=== PATIENT | male | born 1995 | race Caucasian/White ===

== ENCOUNTER 2019-09-06 06:02 | Day surgery (SDC) | payer OTHER ==
[2019-09-06] MEDS ORDERED: MIDAZOLAM HCL 2 MG/2 ML VIAL ONE (08:48)
[2019-09-06] MEDS ORDERED: HYDROmorphone HCL/PF 2 MG/ML VIAL ONE (08:48)
[2019-09-06] MEDS ORDERED: PROPOFOL 200 MG/20 ML VIAL IV ONE (08:48)
[2019-09-06] MEDS ORDERED: LIDOCAINE HCL 2% PF 100MG/5ML VIAL IJ ONE (08:48)
[2019-09-06] MEDS ORDERED: SODIUM CHLORIDE IRRIG SOLUTION 3,000 ML IRRIG.SOLN IR ONE (08:48)
[2019-09-06] MEDS ORDERED: LABETALOL HCL 20 MG/4 ML SYRINGE IV ONE (08:48)
[2019-09-06] MEDS ORDERED: BUPIV. HCL 0.25% (2.5MG/ML)/EPI. (1:200,000) PF 10 ML VIAL IM ONE (08:48)
[2019-09-06] MEDS ORDERED: ROCURONIUM BROMIDE 10 MG/ML 5ML VIAL ONE (08:48)
[2019-09-06] MEDS ORDERED: ONDANSETRON HCL/PF 4 MG/ 2ML VIAL ONE (08:48)
[2019-09-06] MEDS ORDERED: LACTATED RINGERS 1,000 ML IV.SOLN IV ONE ×2 (08:48)
[2019-09-06] MEDS ORDERED: DEXAMETHASONE SODIUM PHOSPHATE 10 MG/ML VIAL ONE (08:48)
[2019-09-06] MEDS ORDERED: LIDOCAINE HCL 1% PF 300MG/30ML VIAL ONE (08:48)
[2019-09-06] MEDS ORDERED: ceFAZolin SODIUM 1 GM VIAL ONE (08:48)
[2019-09-06] MEDS ORDERED: SUGAMMADEX SODIUM 200 MG/2 ML VIAL IV ONE (08:48)
[2019-09-06] MEDS ORDERED: SEVOFLURANE 250 ML LIQUID IH ONE (08:48)
[2019-09-06] MEDS ORDERED: hydrALAZINE HCL 20 MG/1 ML ONE (09:33)
[2019-09-06] MEDS ORDERED: fentaNYL CITRATE/PF 100 MCG/2 ML INJ. ONE ×3 (10:00→10:28)
[2019-09-06] MEDS ORDERED: 0.9 % SODIUM CHLORIDE 1,000 ML IV ONE (10:55)
--- NOTE | 2019-09-10 17:34 | Operative Note ---
PROCEDURE DATE: 09/06/2019 PREOPERATIVE DIAGNOSIS: 1. Morbid obesity. 2. Hypertension. 3. Sleep apnea. POSTOPERATIVE DIAGNOSIS: 1. Morbid obesity. 2. Hypertension. 3. Sleep apnea. PROCEDURES PERFORMED: 1. Laparoscopic vertical sleeve gastrectomy. 2. Upper gastrointestinal endoscopy. SURGEON: Chris Arora M.D. INDICATIONS FOR PROCEDURE: Mr. Shannon is a 23-year-old male who presented with features of morbid obesity. He was noted to have a weight of 490 pounds with a BMI of 59.2 with the above-listed comorbidities. The patient was advised laparoscopic vertical sleeve gastrectomy and possible hiatal hernia repair. The patient showed understanding and agreed to proceed. DESCRIPTION OF PROCEDURE: After explaining to the patient in detail and informed consent was obtained, the patient was identified in the preoperative holding area. The patient was transferred to the operating room and was placed in supine position. Sequential compressive devices were placed for DVT prophylaxis. Preoperative antibiotics were given. After induction of anesthesia, the abdomen was prepped and draped in a sterile fashion. Through a left upper quadrant 1-cm incision, and using Optiview technique, the peritoneal cavity was entered and pneumoperitoneum was created. Thereafter, under direct vision, another 5-mm trocar was placed in the left midabdomen and another 15-mm trocar was placed in the right midabdomen. Through a 1-cm incision in the right subcostal region, another 5-mm trocar was placed. Through a 1-cm incision in the epigastrium, a Harini retractor was introduced and the left lobe of the liver was retracted. On initial inspection, the patient was noted to have no evidence of hiatal hernia. I took down the gastroepiploic vessels using a LigaSure. This was continued superiorly. The short gastric vessels were taken down. The gastrophrenic ligament was divided and the Angle of His was mobilized. The posterior attachments of the stomach on the pancreas were released. Distally, the gastroepiploic vessels were taken down up to about 4 cm proximal to the pylorus. At this point, a #38 [place] Hurst Bougie was introduced into the stomach and was placed along the lesser curve. The stomach was then divided in a vertical fashion with multiple Endo CHANDRIKA Covidien Black Load Staplers. The first firing was directed outwards towards the greater curvature. Subsequent firings were directed towards the Angle of His to create a loose sleeve around the #38 [place] bougie. The bougie was then removed and an upper GI endoscopy was performed at this point. The scope was introduced into the esophagus and was gradually advanced into the stomach. The GE junction appeared normal. The sleeve size appeared normal. No evidence of any active bleeding was noted. The stomach was insufflated with air and irrigation of fluid along the staple line revealed no evidence of air leak. The stomach was then suctioned out and the scope was removed. Absolute hemostasis was ensured. Thorough saline irrigation was given. The Harini retractor was removed. Approximately 10 mL of a lidocaine- Marcaine mix was instilled under the left hemidiaphragm. The sleeve gastrectomy specimen was removed. The abdomen was then deflated. The incisions were closed with 4-0 Monocryl. Dermabond was applied. Approximately 10 mL of a lidocaine- Marcaine mix was injected into all the incisions. The patient was awakened from anesthesia and was transferred to the recovery room in stable condition. The patient had some bleeding that was noted from the short gastric vessels near the Angle of His, but the stomach was found to be firmly adherent onto the spleen. The patient had approximately 250 mL of blood loss while trying to take control of this. It was controlled with pressure, subsequently with Surgicel and cauterization, and Surgiflo was placed at the end of the procedure. ESTIMATED BLOOD LOSS: Approximately 250 mL. CONDITION OF THE PATIENT: Stable. FLUIDS GIVEN: Per Anesthesia note. SPECIMEN(S) SENT: Sleeve gastrectomy specimen. COMPLICATIONS: None. ANESTHESIA: General. Chris Arora M.D. WILL/tete (Please copy [facility] provider when applicable) Job #[id number] EVY
== END 2019-09-06 10:44 | disposition other institution (70) ==
LOC: OPSURG 06:02
PROVIDERS: ATTEND Surgery
DX: E66.01 Morbid (severe) obesity due to excess calories (principal); Z68.43 Body mass index [BMI] 50.0-59.9, adult; G47.30 Sleep apnea, unspecified; I10 Essential (primary) hypertension; K66.0 Peritoneal adhesions (postprocedural) (postinfection)
CPT/HCPCS: 43235; 43775; 88305; J0360; J0690; J1170; J2001; J2250; J2405; J2704; J3010; J7030; J7120

== ENCOUNTER 2019-09-06 10:45 | Inpatient (IN) | payer OTHER ==
[2019-09-06] MEDS ORDERED: PROMETHAZINE HCL 25 MG in 0.9 % SODIUM CHLORIDE 50 ML IV PRN (11:08)
[2019-09-06] MEDS ORDERED: ONDANSETRON HCL/PF 4 MG/ 2ML VIAL IVP PRN (11:08)
[2019-09-06] MEDS ORDERED: IPRATROPIUM/ALBUTEROL SULFATE 3 ML AMPUL.NEB NEB PRN (11:08)
--- NOTE | 2019-09-06 11:17 | History and Physical Report ---
History of Present Illnes - History of Present Illness Reason for Visit: S/P LSG History of Present Illness: Patient is a 23-year-old male who has tried multiple diets and exercise programs with no success. He has always struggled with his weight since he was a child. Patient and surgeon decided to proceed with gastric sleeve procedure. Procedure went well- he had a very large stomach and has 250ml of blood loss. He was treated for hypertension in PACU with doses of Labetolol and Hydralazine; we will monitor blood pressures closely- he is elevated upon arrival to unit; will treat pain and see if this works. He will be admitted and monitored s/p surgical intervention. Patient has been on a liquid diet prior to surgery so he is a risk of dehydration s/p surgery. He will be admitted for IV hydration to help hydrate patient until he is able to tolerate a sufficient oral intake, will treat pain with IV medication until patient is able to tolerate oral meds, IV antiemetics to help reduce episodes of nausea and/or vomiting. Patient will be monitored closely using telemetry s/p surgery d/t HTN. Will encourage incentive spirometer for morbid obesity and WES. Will monitor respiratory status due to WES. Patient appears very uncomfortable s/p surgery. - Past Medical History Cardiac: HTN Pulmonary: Sleep Apnea Gastrointestinal: GERD Psych: Anxiety, Depression, Other (SI in 2017) Musculoskeletal: Chronic low back pain, Osteoarthritis Endocrine: obesity (Morbid) - Past Surgical History Past Surgical History: None, Other (Had a colonoscopy) - Past Family History Mother Family History: None, Other (Tobacco use) Father Family History: Hypertension - Past Social History Smoke: Quit (2018) Occupation: Disabled Alcohol: None Drugs: None Lives: With Family Domestic Violence: Negative - Health Maintenance Health Maintenance: Cholesterol, Colonoscopy Influenza Vaccine: No Pneumonia Vaccine: No Resuscitation Status: Resusciation Status Resuscitation Status Full Code - Unable to Obtain History Unable to Obtain: No Review of Systems - Review of Systems Constitutional: Weakness Eyes: negative: pain, conjunctivae inflammation ENT: negative: Nose Discharge, Nose Congestion, Throat Pain Respiratory: SOB with Excertion. negative: Cough, Dry Cardiovascular: negative: Chest Pain, Light Headedness Gastrointestinal: Nausea, Abdominal Pain (s/p LSG). negative: Vomiting Genitourinary: negative: Dysuria Musculoskeletal: Back Pain (chronic) Skin: Other (Incision sites x 5) Neurological: Weakness - Medications/Allergies Allergies/Adverse Reactions: Allergies Allergy/AdvReac Type Severity Reaction Status Date / Time hydrocodone AdvReac Nausea/Vomi Verified 09/06/19 11:06 ting Current Inpatient Medications: Current Inpatient Medications Acetaminophen (Ofirmev) 1,000 mg IV Q6H PRN PRN Reason: For Mild Breakthrough Pain Stop: 09/10/19 11:07 Albuterol/Ipratropium (Duoneb) 3 ml NEB Q4 PRN PRN Reason: Wheezing Stop: 10/06/19 11:07 Enoxaparin Sodium (Lovenox) 40 mg SQ DAILY [facility] Stop: 09/21/19 11:09 Famotidine (Pepcid) 20 mg IVP BID [facility] Stop: 09/10/19 20:59 Promethazine HCl 25 mg/ Sodium (Chloride) 51 mls @ 200 mls/hr IV Q6 PRN PRN Reason: Nausea / Vomiting Stop: 09/10/19 11:07 Sodium Chloride (Normal Saline) 1,000 mls @ 150 mls/hr IV Q8H [facility] Stop: 10/06/19 11:14 Cefazolin Sodium 1 gm/ Sodium (Chloride) 50 mls @ 100 mls/hr IV Q8H [facility] Stop: 09/07/19 00:29 Morphine Sulfate () 2 mg IV Q2H PRN PRN Reason: PAIN 8-10 Stop: 09/10/19 11:07 Ondansetron HCl (Zofran) 4 mg IVP Q6H PRN PRN Reason: Nausea / Vomiting Stop: 09/10/19 11:07 Exam - Exam General: Alert, Oriented to Person, Oriented to Place, Moderate distress, Other (Still waking up from anesthesia), Morbidly Obese HEENT: PERRLA, Mouth Mucous membr. moist/[place], Nose Mucous membr. moist/[place] Neck: Normal Range of Motion Carotids: No bruit Lungs: Clear to auscultation, Normal air movement Cardiovascular: Regular rate, Normal S1, Normal S2 Peripheral Edema: None Peripheral Pulses: 2+ Abdomen: Soft, Decreased Bowel Sounds Integumentary: Warm, Dry, Pale, Other (incisions x 5 without redness/erythema/drainage- Skin adhesive intact) Extremities: No edema, Normal pulses, No tenderness/swelling Neurological: Generalized Weakness Psych/Mental Status: Other (flat affect; very uncomfortable) Assessment/Plan - Assessment/Plan (1) S/P laparoscopic sleeve gastrectomy Status: Acute Current Visit: Yes Plan: Plan to admit for IV hydration, IV pain meds, and IV antiemetics. Lovenox and SCDs to help prevent DVTs, IS and frequent ambulation will be implemented. Start ice chips and advance diet as tolerated. IV pepcid BID (2) Morbid obesity due to excess calories Status: Acute Current Visit: Yes Plan: Patient is s/p gastric sleeve. We will assist patient with implementing gastric sleeve diet protocol starting with ice chips and clear liquids and advancing as tolerated (3) Obstructive sleep apnea Status: Acute Current Visit: Yes Plan: Patient has mild sleep apnea; no device; will monitor pulse ox and resp. status closely until fully withdrawn from anesthesia (4) Hypertension Status: Acute Current Visit: Yes Qualifiers: Hypertension type: essential hypertension Qualified Code(s): I10 - [place] l (primary) hypertension Plan: Patient is not normally on blood pressure medication; we will monitor closely; if diastolic > 90 we will give hydralazine IVP (5) Nausea and vomiting Status: Acute Current Visit: Yes Plan: Pepcid IV BID ordered; IV antiemetics, and IVFs (6) Anxiety and depression Status: Acute Current Visit: Yes Plan: Will hold medications at this time; will monitor closely (7) Chronic back pain Status: Acute Current Visit: Yes Plan: Patient will be receiving pain medications; may use heating pad as needed (8) GERD (gastroesophageal reflux disease) Status: Acute Current Visit: Yes Plan: Hx of GERD, will continue with Pepcid 20 mg BID IV (9) Blood loss Status: Acute Current Visit: Yes Plan: Patient had 250ml blood loss in surgery; we will repeat CBC at 20:00 VTE Assessment - RISK FACTOR SCORE VTE RISK FACTOR SCORES: OBESITY - RISK VTE LOW RISK: SCORE OF 1 OR LESS (RISK PROXIMAL DVT 0.4%) NO PROPHYLAXIS NEEDED (Will continue on Lovenox starting tomorrow due to Morbid Obesity)
[2019-09-06] MEDS: MORPHINE SULFATE 2 MG/ML VIAL IV PRN ×3 (11:34→21:04)
[2019-09-06 11:37] VITALS: BMI 56.7
[2019-09-06] MEDS: 0.9 % SODIUM CHLORIDE 1,000 ML IV SCH ×2 (13:56→20:12)
[2019-09-06] MEDS: ceFAZolin SODIUM 1 GM in 0.9 % SODIUM CHLORIDE 50 ML IV SCH (16:36)
[2019-09-06] MEDS: ACETAMINOPHEN 1,000 MG/100 ML INJ IV PRN (17:30)
[2019-09-06] MEDS: MELATONIN 3 MG TABLET PO SCH (20:13)
[2019-09-06] MEDS: FAMOTIDINE 20 MG/2 ML VIAL IVP SCH (20:16)
[2019-09-07] MEDS: ceFAZolin SODIUM 1 GM in 0.9 % SODIUM CHLORIDE 50 ML IV SCH ×2
[2019-09-07] MEDS: MORPHINE SULFATE 2 MG/ML VIAL IV PRN ×3 (02:00→18:42)
[2019-09-07] MEDS: ACETAMINOPHEN 1,000 MG/100 ML INJ IV PRN ×2 (03:11→08:48)
[2019-09-07] MEDS: 0.9 % SODIUM CHLORIDE 1,000 ML IV SCH ×3 (04:20→17:54)
[2019-09-07 05:54] LABS: BASOPHILS % 0.5 % (0.0-1.5)
[2019-09-07 05:59] LABS: eGFR (Non-African) > 60
--- NOTE | 2019-09-07 06:10 | Inpatient Progress Note ---
Subjective - Required Recertification Statement I anticipate X number of days because-include discharge plan: 1 - Review of Systems Events since last encounter: Patient appears to be sleeping; wakes up easily; states that he is feeling a little better this morning; states he had a lot of nausea and dry heaves after surgery. Patient has been up walking in the hallway this morning; he states he had some nausea and abdominal discomfort; seems to be doing well. VSS. He states that he did not get much sleep. He was having a lot of discomfort last night. He states that pain is improving. He denies any chest pain or shortness of breath. He has been up ambulating in the halls and using incentive spirometer while awake. He is compliant with care. General: Denies: Chills HEENT: Denies: Head Aches Pulmonary: Denies: Dyspnea Cardiovascular: Denies: Chest Pain, Light Headedness Gastrointestinal: Nausea, Vomiting, Abdominal Pain (Incisions x 5 without redness/erythema/drainage; skin adhesive intact) Genitourinary: Denies: Dysuria Musculoskeletal: Back Pain Neurological: Weakness Objective - Exam Vitals and I&O: Vital Signs Temp 97 F L 09/07/19 02:00 Pulse 69 09/07/19 05:20 Resp 20 09/07/19 05:20 BP 162/101 09/07/19 02:00 Pulse Ox 96 09/07/19 05:19 Intake & Output 09/06/19 09/06/19 09/07/19 11:59 23:59 11:59 Intake Total 30 220 960 Output Total 700 700 Balance 30 -480 260 Weight 211.374 kg 210.478 kg Intake: IV 900 Left Hand 900 Oral 30 220 60 Output: Urine 700 700 Other: Voiding Method Urinal Urinal # Bowel Movements 0 General: Alert, Oriented to Person, Oriented to Place, Oriented to Time, Cooperative, Mild distress, Morbidly Obese HEENT: Atraumatic, PERRLA, Mouth Mucous membr. moist/[place], Nose Mucous membr. moist/[place] Neck: Supple, +2 carotid pulse wo bruit Lungs: Clear to auscultation, Normal air movement, Speaks full Sentences Cardiovascular: Regular rate, Normal S1, Normal S2 Abdomen: Soft, Decreased Bowel Sounds Extremities: No edema, Normal pulses, No tenderness/swelling Skin: Normal, [place], Warm, Dry Neurological: Normal gait, Normal speech, Strength Equal Bilat, Generalized Weakness Psych/Mental Status: Mental status NL, Mood NL, Appropriate Affect, Intact Judgment - Results Results: Laboratory Results WBC 13.50 K/ul (4.00-12.00) H 09/07/19 05:15 RBC 5.43 M/ul (3.90-5.20) H 09/07/19 05:15 Hgb 12.9 g/dL (12.0-18.0) 09/07/19 05:15 Hct 38.3 % (37.0-53.0) 09/07/19 05:15 MCV 70.0 fl (80.0-100.0) L 09/07/19 05:15 MCH 23.7 pg (28.0-34.0) L 09/07/19 05:15 MCHC 33.7 g/dL (30.0-36.0) 09/07/19 05:15 RDW 16.9 % (11.3-14.3) H 09/07/19 05:15 Plt Count 311 K/mm3 (130-400) 09/07/19 05:15 Neut % (Auto) 81.1 % (39.0-79.0) H 09/07/19 05:15 Lymph % (Auto) 9.9 % (16.0-50.0) L 09/07/19 05:15 [facility] % (Auto) 7.7 % (0.0-11.0) 09/07/19 05:15 Eos % (Auto) 0.8 % (0.0-6.8) 09/07/19 05:15 Baso % (Auto) 0.5 % (0.0-1.5) 09/07/19 05:15 Neut # (Auto) 11.0 # k/uL (1.4-7.7) H 09/07/19 05:15 Lymph # (Auto) 1.3 # k/uL (0.6-4.0) 09/07/19 05:15 [facility] # (Auto) 1.0 # k/uL (0.0-0.9) H 09/07/19 05:15 Eos # (Auto) 0.1 # k/uL (0.0-0.6) 09/07/19 05:15 Baso # (Auto) 0.1 # k/uL (0.0-0.5) 09/07/19 05:15 Sodium 142 mmol/L (137-145) 09/07/19 05:15 Potassium 3.9 mmol/L (3.5-5.1) 09/07/19 05:15 Chloride 104 mmol/L (98-107) 09/07/19 05:15 Carbon Dioxide 26 mmol/L (22-30) 09/07/19 05:15 Anion Gap 15.9 09/07/19 05:15 BUN 6 mg/dL (9-20) L 09/07/19 05:15 Creatinine 0.40 mg/dL (0.66-1.25) L 09/07/19 05:15 Estimated Creat Clear 855 09/07/19 05:15 Est GFR ( Amer) > 60 (60-) 09/07/19 05:15 Est GFR (Non-Af Amer) > 60 (60-) 09/07/19 05:15 Glucose 126 mg/dL (74-106) H 09/07/19 05:15 Calcium 8.7 mg/dL (8.4-10.2) 09/07/19 05:15 Total Bilirubin 0.5 mg/dL (0.2-1.3) 09/07/19 05:15 AST 37 U/L (15-46) 09/07/19 05:15 ALT 37 U/L (0-50) 09/07/19 05:15 Alkaline Phosphatase 65 U/L (38-126) 09/07/19 05:15 Total Protein 8.0 g/dL (6.3-8.2) 09/07/19 05:15 Albumin 4.2 g/dL (3.5-5.0) 09/07/19 05:15 Assessment/Plan - Assessment/Plan (1) S/P laparoscopic sleeve gastrectomy Status: Acute Current Visit: Yes Assessment: Patient experiencing nausea; has been ambulating, wearing SCDs while in bed, using incentive spirometry, patient receiving lovenox to prevent DVT Plan: Patient getting IV fluids for hydration, IV pain meds, and IV antiemetics. Lovenox and SCDs to help prevent DVTs, IS and frequent ambulation will be implemented. Patient eating ice chips and will advance diet to clear liquids as tolerated once nausea and vomiting is controlled. Will continue with Pepcid IV BID for GI upset (2) Morbid obesity due to excess calories Status: Acute Current Visit: Yes Assessment: Patient tolerating ice chips and water; some nausea Plan: Will advance diet to clear liquids today (3) Obstructive sleep apnea Status: Acute Current Visit: Yes Assessment: Patient doing well; no shortness of breath Plan: Will continue to monitor (4) Hypertension Status: Acute Current Visit: Yes Qualifiers: Hypertension type: essential hypertension Qualified Code(s): I10 - Essential (primary) hypertension Assessment: Blood pressure this morning is 160/90 Plan: Will continue to monitor VS every 4 hours (5) Nausea and vomiting Status: Acute Current Visit: Yes Assessment: Patient having nausea; able to sip on fluids Plan: Will continue with Zofran and phenergan (6) Anxiety and depression Status: Acute Current Visit: Yes Assessment: Condition stable Plan: Will continue to monitor (7) Chronic back pain Status: Acute Current Visit: Yes Assessment: Patient c/o low back pain- chronic in nature Plan: Will have patient up and walking frequently (8) GERD (gastroesophageal reflux disease) Status: Acute Current Visit: Yes Assessment: Patient having a little acid reflux with nausea Plan: Will continue with Pepcid IV 20 mg BID (9) Blood loss Status: Acute Current Visit: Yes Assessment: Hgb and Hct are WNL; VSS
[2019-09-07] MEDS: FAMOTIDINE 20 MG/2 ML VIAL IVP SCH ×2 (08:50→20:06)
[2019-09-07] MEDS: ENOXAPARIN SODIUM 40 MG/0.4 ML DISP.SYRIN SQ SCH (10:39)
[2019-09-07] MEDS ORDERED: LIDOCAINE HCL 5% ADH..PATCH TP PRN (11:28)
[2019-09-07] MEDS: MELATONIN 3 MG TABLET PO SCH (20:10)
[2019-09-08] MEDS: 0.9 % SODIUM CHLORIDE 1,000 ML IV SCH ×2 (00:38→06:35)
[2019-09-08] MEDS: FAMOTIDINE 20 MG/2 ML VIAL IVP SCH (08:33)
[2019-09-08] MEDS: ENOXAPARIN SODIUM 40 MG/0.4 ML DISP.SYRIN SQ SCH (08:33)
--- NOTE | 2019-09-08 09:09 | Discharge Summary ---
Discharge Summary - Discharge [facility] Admission Date: 09/06/19 Discharge Date: 09/08/19 Discharge To: Home History of Present Illness: Patient is a 23-year-old male who has tried multiple diets and exercise programs with no success. He has always struggled with his weight since he was a child. Patient and surgeon decided to proceed with gastric sleeve procedure. Condition at Discharge: Stable Home Medications: Ambulatory Orders Medication Instructions Recorded Buspirone HCl [Buspar] 15 mg PO BID 09/06/19 Hydroxyzine Pamoate [Vistaril] 25 mg PO PRN PRN 09/06/19 Melatonin 10 mg PO HS 09/06/19 Omeprazole 20 mg PO DAILY 09/06/19 Sertraline HCl [Zoloft] 200 mg PO DAILY 09/06/19 Consultations this Visit: Other (PT/OT, hospitalist service) Procedures this Visit: Other (Laparoscopic gastric sleeve, EGD) Allergies/Adverse Reactions: Allergies Allergy/AdvReac Type Severity Reaction Status Date / Time hydrocodone AdvReac Nausea/Vomi Verified 09/06/19 11:06 ting Patient Problems: Current Active Problems Problem Status Onset Anxiety and depression Acute Blood loss Acute Chronic back pain Acute GERD (gastroesophageal reflux disease) Acute Hypertension Acute Morbid obesity due to excess calories Acute Nausea and vomiting Acute Obstructive sleep apnea Acute S/P laparoscopic sleeve gastrectomy Acute Discharge Summary: He is discharged to home to resume current medications. Phenergan 6.25 mg/5 ml 10 cc po q6h prn nausea, hydrocodone syrup 7.5 mg/15 ml 10 cc every six hours prn pain. Follow up with Dr. Perez as scheduled. Routine teaching regarding diet and postoperative care. Hospital Course: Procedure went well- he had a very large stomach and has 250ml of blood loss. He was treated for hypertension in PACU with doses of Labetolol and Hydralazine; we will monitor blood pressures closely- he is elevated upon arrival to unit; will treat pain and see if this works. He will be admitted and monitored s/p surgical intervention. Patient has been on a liquid diet prior to surgery so he is a risk of dehydration s/p surgery. He was admitted for IV hydration to help hydrate patient until he was able to tolerate a sufficient oral intake, will treat pain with IV medication until patient is able to tolerate oral meds, IV antiemetics to help reduce episodes of nausea and/or vomiting. Patient was monitored closely using telemetry s/p surgery d/t HTN. E ncouraged incentive spirometer for morbid obesity and WES. Monitored respiratory status due to WES. Patient was very uncomfortable s/p surgery but this improved over the day and hospital day #2.
[2019-09-08 09:26] VITALS: BP 161/69
== END 2019-09-08 11:10 | disposition home or self-care (01) | DRG 621 ==
LOC: SOUTH 10:45
PROVIDERS: ADMIT Nurse Practitioner Family; ATTEND Nurse Practitioner Family
PROC: 0DB64Z3 Excision of Stomach, Percutaneous Endoscopic Approach, Vertical (ICD-10-PCS; principal; 2019-09-06)
DX: E66.01 Morbid (severe) obesity due to excess calories (principal); I10 Essential (primary) hypertension; G47.33 Obstructive sleep apnea (adult) (pediatric); K21.9 Gastro-esophageal reflux disease without esophagitis; F41.9 Anxiety disorder, unspecified; F32.9 Major depressive disorder, single episode, unspecified; M19.90 Unspecified osteoarthritis, unspecified site; G89.29 Other chronic pain; M54.9 Dorsalgia, unspecified; Z87.891 Personal history of nicotine dependence; Z88.5 Allergy status to narcotic agent; Z79.899 Other long term (current) drug therapy; Z68.43 Body mass index [BMI] 50.0-59.9, adult
CPT/HCPCS: 80053; 85025; 97116; 97161; 97165; 97535; J0690; J1650; J2270; J2405; J7030; 99221; 99231; 99238